=== PATIENT | male | born 1990 | race Caucasian/White ===

== ENCOUNTER 2016-09-28 05:32 | Day surgery (SDC) | payer OTHER ==
[2016-09-28] VITALS (8 sets, daily range): BP systolic 96–127; BP diastolic 47–83; PULSE 57–81; RESP 10–17; O2SAT 97–100
[~2016-09-28] VITALS: Ht 193 cm; Wt 84.0 kg
[2016-09-28] MEDS ORDERED: Bupivacaine-MPF 0.25%/EPI 30 mL Inj ONE (05:33)
[2016-09-28] MEDS ORDERED: Ondansetron 2 mg/mL 2 mL Inj ONE (05:33)
[2016-09-28] MEDS ORDERED: Ketamine 10 mg/mL 20 mL Inj ONE (05:33)
[2016-09-28] MEDS ORDERED: MetoCLOpramide 5 mg/mL 2 mL Inj ONE (05:33)
[2016-09-28] MEDS ORDERED: fentaNYL-PF 50 mCg/mL 2 mL Inj ONE (05:33)
[2016-09-28] MEDS ORDERED: Propofol 10,000 mCg/mL 20 mL Inj ONE (05:33)
[2016-09-28] MEDS ORDERED: Dexamethasone 4 mg/mL Inj ONE (05:33)
[2016-09-28] MEDS ORDERED: Clindamycin 600 mg/50 mL D5W IV ONE (06:00)
[2016-09-28] MEDS: Lactated Ringer's 1,000 ML IV SCH ×2 (06:10→07:30)
[2016-09-28] MEDS ORDERED: Lactated Ringer's 500 ML IV PRN (07:13)
[2016-09-28] MEDS ORDERED: Lactated Ringer's 1,000 ML IV SCH (07:13)
--- NOTE | 2016-09-28 07:14 | PCM.HPANE ---
Patient Data Surgeon Admitting Provider: Attending Provider:Eliezer Haddad MD Primary Care Physician:Nazia Obrien MD Other Provider:[facility] Anesthesia Reason for Visit Right Acl Tear Ht/WT & BMI Height (Feet): 6 Height (Inches): 4.00 Weight (Kilograms): 84.005 Body Mass Index 22.00 Allergies Coded Allergies: Penicillins (Verified Allergy, Unknown, UNKNOWN (APPARENTLY HAD A REACTION IN CHILDHOOD), 09/23/16) Past Anesthesia History Anesthesia History: Denies:: Fam Anesthesia Reaction, Fam Malignant Hypertherm Diabetes History Hx Diabetes?: No MRSA MRSA: No Medications Hypertension Medication: No Home Meds Incl Beta Trent: No No Active Prescriptions or Reported Meds History History of ENT Problems?: No Hx of Heart Problems?: No Cardiovascular History: Denies:: Heart Murmur Hypertension Hx of Respiratory Problem?: No Respiratory History: Denies:: Use of C-PAP Machine Hx Neurologic Problems?: No Hx of GI Problems?: No Hx of Problems?: No Male Hx: Denies:: Prostate Problems Scrotal Mass Testicular Surgery Skin History: Denies:: History Skin Disorders? Pressure Ulcers Hx Musculoskeletal Problems?: Yes Musculoskeletal History: Positive for:: Musculoskeletal Trauma (HX OF LT CLAVICE INJURY @ AGE 15Y RT ACL TEAR=CURRENT PROBLEM) Hx of Psycho/Social Problems?: No Hx Surgeries?: No (clavicle) Hx Any Other Health Problems?: No Other History: Denies:: Cancer Endocrine Disease Hospitalization Thyroid Disease History Blood Transfusions: Denies:: Blood Transfusions Hx Diabetes: No Stop/Bang S-Snoring: Do You Snore Loudly: No T-Tired: feel tired, fatigued: No O-Obsered: Observed not breath: No P-Blood Pressure: treated: No B- Body Mass Index > 35 kg/m2: No A- Age over 50: No N- Neck Large Circumference: No G- Gender Male: Yes SUKH Total Score: 1 SUKH Risk Assessment: Low Risk, <3 Yes Risk Assessment Category Category 1A: Patient has history of documented sleep apnea, and HAS NOT received any narcotic, sedative or anesthesia administration during this stay. Category 1B: Patient has history of documented sleep apnea, and HAS received any narcotic , sedative or anesthesia administration during this stay Category 2: Patient has SUSPECTED Obstructive Sleep Apnea, and HAS received any narcotic , sedative or anesthesia administration during this stay. Category 3: Patient has SUSPECTED Obstructive Sleep Apnea and HAS NOT received narcotic, sedative or anesthesia administration during this stay. Category 4: Outpatient in Procedural Areas with known sleep apnea or who screen positive for High Risk via the STOP/BANG questionnaire. Exam Exam Vital Signs Vital Signs Date Time Temp Pulse Resp B/P Pulse Ox O2 Delivery O2 Flow Rate FiO2 09/28/16 06:04 36.2 57 17 122/75 100 Room Air General Appearance: Oriented X3 HEENT/AIRWAY: MP 2 Lungs: Normal Air Movement Heart: Regular Rate/Rhythm Meds/Labs/Diagnostics Admission Meds Current Medications Lactated Ringer's (Lr) 1,000 ml @ 120 mls/hr [id number] IV Last administered on t 06:10; Start 09/28/16 at 05:00; Stop 09/28/16 at 13:19 Plan Impression Patient chart reviewed, patient interviewed and anesthestic plan with risks, benefits, and alternatives discussed, and informed consent obtained. NPO Status: 09/27@1999 ASA Physical Status: ASA1 Normal Healthy Anesthetic Plan: GA, Regional Block Bene/Risks/Altern/Consents: Yes HP Complete Prior to Induction: Yes Narciso Sagastume MD Sep 28, 2016 07:14
[2016-09-28] MEDS ORDERED: Dexamethasone 4 mg/mL Inj IVPUSH PRN (07:15)
[2016-09-28] MEDS ORDERED: MetoCLOpramide 5 mg/mL 2 mL Inj IVPUSH PRN (07:15)
[2016-09-28] MEDS ORDERED: HYDROmorphone 1 mg/mL Inj IVPUSH PRN (07:15)
[2016-09-28] MEDS ORDERED: Phenylephrine 10,000 mCg/mL Inj IVPUSH PRN (07:15)
[2016-09-28] MEDS ORDERED: Ondansetron 2 mg/mL 2 mL Inj IVPUSH PRN (07:15)
[2016-09-28] MEDS ORDERED: EPHEDrine Sulfate 50 mg/mL Inj IVPUSH PRN (07:15)
[2016-09-28] MEDS ORDERED: fentaNYL-PF 50 mCg/mL 2 mL Inj IVPUSH PRN (07:15)
[2016-09-28] MEDS ORDERED: Morphine PF 0.5 mg/mL 10 mL Inj ONE (07:23)
[2016-09-28] MEDS ORDERED: Ropivacaine-PF 0.5% 30 mL Inj INFILTRATE ONE (08:10)
[2016-09-28] MEDS ORDERED: Morphine PF 0.5 mg/mL 10 mL Inj ARTICULAR ONE (08:10)
[2016-09-28] MEDS ORDERED: Bacitracin 50,000 unit Inj IRRIGATION ONE (08:11)
[2016-09-28] MEDS ORDERED: Ketorolac 15 mg/mL Inj IVPUSH ONE (09:10)
[2016-09-28] MEDS ORDERED: HYDROcodone-APAP 5-325 mg Tablet PO PRN (09:10)
--- NOTE | 2016-09-28 09:19 | PCM.ORTHOP ---
Orthopedic Operative Report Date of Service: Sep 28, 2016 Pre Operative Diagnosis right ACL tear, lateral menicus tear, lateral femoral condyle osteochondral lesion, 20 mm x 15 mm Post Operative Diagnosis Same Procedure Right knee arthroscopy, anterior cruciate ligament reconstruction, microfracture of lateral femoral condyle lesion 20 mm x 15 mm, chondroplasty, partial synovectomy, Surgeon Surgeon: Eliezer Haddad MD Assistants: Jasbir Diaz Indication for Procedure Right knee anterior cruciate ligament tear, meniscus tear, osteochondral lesion. 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 Without the qualified administrative assistant front desk being present, it would have extended the operative procedure and made the procedure technically more difficult to perform. INDICATIONS: The patient is Yusuf Og is a 26-year-old male patient with a prolonged history of right knee giving way. The patient has had continued episodes of instability. The patient has restored their range of motion and is now brought to the operating room for ACL reconstruction, possible partial medial and lateral meniscectomy versus medial and lateral meniscal repair, chondroplasty, microfracture, and debridement. The risks, benefits, and alternatives of surgery were discussed with the patient. The risks included but were not limited to infection, bleeding, damage to vessels and nerves, loss of motion, continued pain, re-tear of the meniscus, deep venous thrombosis, and complications due to anesthesia including nerve injury, myocardial infarction, stroke, , etc. The patient stated understanding of the nature of the surgical procedure and gave written and verbal consent to proceed. PROCEDURE: The patient was brought to the operating room and placed supine on the operating room table. General anesthesia was induced and a fascia iliacus block was placed. The right lower extremity was examined under anesthesia. Range of motion was 0 degrees of hyperextension to 135 degrees of flexion. There was no varus or valgus or posterolateral instability. The patient had no instability to varus or valgus stress at 0 or 30 degrees. The patient had a 2+ Jacqui and drawer with a positive pivot shift. The right lower extremity was then prepped and draped in in the usual fashion. A tourniquet was placed proximally on the thigh over a bias stockinette. A standard anterolateral parapatellar stab wound was created. The knee joint was entered with a blunt-tipped obturator, followed by the 30-degree video arthroscope. An anteromedial portal was established under arthroscopic control. A routine arthroscopic survey was performed. The suprapatellar pouch was unremarkable. The undersurface of the patella was well-preserved. The patella appeared to track centrally within the trochlear groove. The medial and lateral gutters were inspected and there was no loose body seen. There was no hypertrophied plica. The popliteal hiatus was entered and was unremarkable. The lateral compartment was entered. The articular surfaces of the lateral femoral condyle showed a 20 mm x 15 mm osteochondral lesion down to bone. The lesion was debrided down to stable base with stable edges. Microfracture awl was used to perform a microfracture of the lesion. There was no chondromalacia adjacent to the notch. There was no chondromalacia along the central aspect of the weight bearing lateral tibial plateau. The lateral meniscus was intact and stable to probing. The partially healed posterior horn horizontal meniscus tear was noted that was stable to probing. The decision was made not to repair given the extent of healing. The intercondylar notch was visualized. The anterior cruciate ligament was torn from it's femoral origin. There was an empty lateral wall. Posteromedially there was no loose body seen. The posterior cruciate ligament was visualized and appeared intact. Chondroplasty of the patellofemoral joint was performed as grade 2/3 chondral malacia was noted. Partial synovectomy was performed with the shaver in the anterior compartment. The medial compartment was entered. The articular surfaces of the medial femoral condyle and medial tibial plateau were visualized. There was no chondromalacia noted on the medial femoral condyle, and no chondromalacia noted on the medial tibial plateau. The medial meniscus was visualized and appeared intact and was stable to probing. Attention was turned to reconstruction of the anterior cruciate ligament. Following exsanguination with an Esmarch bandage the tourniquet was inflated to 250 mm of mercury. Using a motorized shaver a notchplasty was performed, exposing the lateral wall and roof of the notch, identifying the [id number] position. The stump of the anterior cruciate ligament was debrided. An Arthrex guide was placed intra-articularly between the tibial spines in line with the anterior horn of the lateral meniscus. A Lloyd wire was then inserted into the knee through a 2 cm incision made over the proximal medial tibia. The incision was deepened through the subcutaneous tissue with subperiosteal dissection achieved. Bleeding points were coagulated with the Bovie electrocautery. A fresh frozen tibialis allograft was opened and prepared at the back table, accommodating a 10 mm graft on the femoral side and 105 mm graft on the tibial side. Tibial drilling was then carried out first with a 5 mm followed by a 10 mm cylindrical reamer with the guide set at 55 degrees. The Beath pin was drilled out the femoral cortex and skin. The femoral tunnel was then created,with an Arthrex flipcutter. Depth-gauging confirmed a tunnel length of 48mm. An Arthrex EndoButton was selected. The graft was inserted intra-articularly and the EndoButton was deployed. The graft was cycled for 17 cycles with 25 pounds of force to pre-load the graft. Tibial fixation was carried out using a 10 PEEK Intra-Fix in 10 degrees of flexion with a posterior drawer. At the completion of surgery the patient had a firm stable Jacqui. The patient had a 0 firm Jacqui and a negative pivot shift. There was no evidence for any roof or lateral wall impingement. The tourniquet was deflated. The knee was irrigated with two liters of lactated Ringer's solution. Excess fluid was drained. The tibial wounds were then copiously irrigated with bacitracin solution and closed in layers with #0, #2-0 and #3-0 Vicryl. The skin was reapproximated with #4- 0 Monocryl. The knee was injected with 20 cc of 0.5% plain ropivacaine and 4 mg of Duramorph. A dry sterile dressing was applied, followed by a bulky bandage and DEXTER stocking. A postoperative TROM brace was applied locked in full extension. The patient was awakened in the Operating Room and transported to the Recovery Room in satisfactory condition. The patient appeared to tolerate the procedure well. At the completion of surgery the patient had soft compartments, palpable pulses, and brisk capillary refill. There were no complications noted. I discussed at length the risks, complications and implications of tobacco products and its effect on the treatment plan and outcomes. The patient has voiced understanding and has agreed to cease consumption of such products for a minimum of the duration of the entire course of treatment. Grafts, Implants: Implants-See Implant Record Complications There were no periprocedural complications identified. Condition Stable Anesthetic Administered: GA Catheters: None Output, Estimated Blood Loss: 5 Blood Admin during surgery: No Surgical Cast or Splint: Knee Immobilizer Surgical Specimen Removed: No Specimen sent to Pathology: No copies to: Eliezer Haddad MD, Christopher L MD Sep 28, 2016 09:19
--- NOTE | 2016-09-28 09:48 | PCM.ANEP1 ---
Post Anesthesia Phase 1 PACU Phase 1 Assessment Date of Service: Sep 28, 2016 Vital Signs Vital Signs Date Time Temp Pulse Resp B/P Pulse Ox O2 Delivery O2 Flow Rate FiO2 09/28/16 09:10 36.6 74 11 96/52 99 Simple Mask 9 09/28/16 06:04 36.2 57 17 122/75 100 Room Air Anesthetic Administered: GA Level of Alertness: Awake, talking Nausea or Vomiting: No Airway Device: Oralpharangeal Airway Lungs: Normal Air Movement Narciso Sagastume MD Sep 28, 2016 09:48
--- NOTE | 2016-09-28 09:48 | PCM.ANEP2 ---
Post Anesthesia Evaluation ASA/CMS Post Anesthesia VS in Patient's Normal Range?: Yes Resp Stable; Airway Patent?: Yes CV Function & Hydration Stable: Yes Mental Status Recovered?: Yes Pain control Satisfactory?: Yes N/V Control Satisfactory?: Yes Narciso Sagastume MD Sep 28, 2016 09:48
== END 2016-09-28 23:59 | disposition home or self-care (01) ==
LOC: SAS 05:32
PROVIDERS: ATTEND Orthopaedic Surgery
DX: S83.271A Complex tear of lateral meniscus, current injury, right knee, initial encounter (principal); S83.511A Sprain of anterior cruciate ligament of right knee, initial encounter; V19.3XXA Pedal cyclist (driver) (passenger) injured in unspecified nontraffic accident, initial encounter; Y93.9 Activity, unspecified; Y92.9 Unspecified place or not applicable; M95.8 Other specified acquired deformities of musculoskeletal system; M25.561 Pain in right knee
CPT/HCPCS: 29881; 29888; J1100; J1885; J2274; J2405; J2765; J2795; J3010; J7120